=== PATIENT | female | born 1945 | race Caucasian/White ===

== ENCOUNTER 2022-05-15 19:15 | Inpatient (IN) ==
[2022-05-15] MEDS ORDERED: cefTRIAXone 2 gm/50 mL D5W 2 GM/50 ML BAG IV ONE (19:50)
[2022-05-15] MEDS ORDERED: NS 0.9% 1000 ml BAG 2,000 ML IV ONE (19:52)
[2022-05-15] MEDS ORDERED: Vancomycin 1,500 MG in NS 0.9% 250 ml 250 ML IVPB ONE (20:07)
[2022-05-15 20:39] LABS: Hematocrit 35 % (35-47); Hemoglobin 11.2 g/dL (12.0-16.0); Mean Corpuscular HGB Conc 32 g/dL (31-36); Mean Corpuscular Hemoglobin 28 pg (27-31); Mean Corpuscular Volume 86 fL (80-97); Mean Platelet Volume 8.2 fL (7.4-10.4); Platelet Count 199 10^3/uL (150-450); Red Blood Count 4.07 10^6 /uL (3.70-4.87); Red Cell Distribution Width 15 % (10-15); White Blood Count 13.6 10^3/uL (3.5-10.8)
[2022-05-15 20:50] LABS: INR 1.11 (0.88-1.18)
[2022-05-15 21:14] LABS: Albumin 3.2 g/dL (3.2-5.2); Albumin/Globulin Ratio 1.1 (1-3); C Reactive Protein 127.58 mg/L (<8.01); Calcium 8.6 mg/dL (8.6-10.3); Creatinine, Serum 1.08 mg/dL (0.51-0.95); Potassium 4.2 mmol/L (3.5-5.0); Total Bilirubin 0.4 mg/dL (0.2-1.0); Total Protein 6.2 g/dL (6.4-8.9); eGFR CKD-EPI 52.6 (>60)
[2022-05-15 21:42] LABS: ABS Eosinophils 0.1 10^3/ul (0-0.6); ABS Monocytes 1.2 10^3/ul (0-0.8); ABS Neutrophils 11.3 10^3/ul (1.5-7.7); Eosinophil % 0.5 %; Lymphocyte % 7.5 %; Nucleated Red Blood Cells % 0.2
[2022-05-15] MEDS ORDERED: Dextrose 50% Syringe 50 ml 25 GM/50 ML SYRINGE IV PUSH ONE (21:42)
[2022-05-15] MEDS ORDERED: Dextrose 50% Syringe 50 ml 25 GM/50 ML SYRINGE IV PUSH PRN ×2 (21:43→23:26)
[2022-05-15 22:55] LABS: High Sensitivity Troponin 1 Hr 11 pg/mL (<15)
[2022-05-15] MEDS: Enoxaparin 40 MG/0.4 ML SYR SUBCUT SCH (23:58)
[2022-05-16 06:05] LABS: ABS Eosinophils 0.1 10^3/ul (0-0.6); ABS Lymphocytes 0.7 10^3/ul (1.0-4.8); ABS Monocytes 1.1 10^3/ul (0-0.8); ABS Neutrophils 9.1 10^3/ul (1.5-7.7); Eosinophil % 0.8 %; Hematocrit 33 % (35-47); Hemoglobin 10.5 g/dL (12.0-16.0); Lymphocyte % 6.6 %; Mean Corpuscular HGB Conc 32 g/dL (31-36); Mean Corpuscular Hemoglobin 28 pg (27-31); Mean Corpuscular Volume 87 fL (80-97); Mean Platelet Volume 8.3 fL (7.4-10.4); Nucleated Red Blood Cells % 0.2; Platelet Count 184 10^3/uL (150-450); Red Blood Count 3.75 10^6 /uL (3.70-4.87); Red Cell Distribution Width 14 % (10-15); White Blood Count 11.1 10^3/uL (3.5-10.8)
[2022-05-16 06:23] LABS: Calcium 7.9 mg/dL (8.6-10.3); Creatinine, Serum 0.87 mg/dL (0.51-0.95); Potassium 4.3 mmol/L (3.5-5.0); eGFR CKD-EPI 68.2 (>60)
[2022-05-16] MEDS: ceFAZolin 2 GM in NS PREMIX 2 GM/100 ML BAG IVPB SCH ×2 (08:46→16:53)
[2022-05-16] MEDS: ceFAZolin 2 GM PREMIX 2 GM/50 ML BAG IV SCH (16:50)
[2022-05-16 17:07] LABS: Hematocrit 28 % (35-47)
[2022-05-16] MEDS ORDERED: cefTRIAXone 2 gm/50 mL D5W 2 GM/50 ML BAG IV SCH (18:00)
[2022-05-16] MEDS ORDERED: Pantoprazole VIAL 40 MG VIAL IV ONE (19:01)
[2022-05-16] MEDS: Pantoprazole 80 mg in NS BAG 80 MG/250 ML BAG IV SCH (20:38)
[2022-05-16] MEDS: Nystatin TOP POWDER 15 GM BTL TOPICAL SCH (20:42)
[2022-05-16] MEDS: Enoxaparin 40 MG/0.4 ML SYR SUBCUT SCH (23:01)
[2022-05-16] MEDS ORDERED: Lactated Ringers 1000 ml BAG 1,000 ML IV ONE (23:34)
[2022-05-17] MEDS: ceFAZolin 2 GM PREMIX 2 GM/50 ML BAG IV SCH ×3 (00:13→17:19)
[2022-05-17 01:18] LABS: Hematocrit 28 % (35-47); Hemoglobin 8.8 g/dL (12.0-16.0)
[2022-05-17] MEDS: Pantoprazole 80 mg in NS BAG 80 MG/250 ML BAG IV SCH ×2 (07:37→20:58)
[2022-05-17] MEDS: Nystatin TOP POWDER 15 GM BTL TOPICAL SCH ×2 (09:02→21:45)
[2022-05-17 09:32] LABS: Hemoglobin 4.7 g/dL (12.0-16.0)
[2022-05-17 09:36] LABS: Hematocrit 15 % (35-47); Mean Corpuscular HGB Conc 31 g/dL (31-36); Mean Corpuscular Hemoglobin 27 pg (27-31); Mean Corpuscular Volume 86 fL (80-97); Mean Platelet Volume 7.9 fL (7.4-10.4); Platelet Count 231 10^3/uL (150-450); Red Blood Count 1.73 10^6 /uL (3.70-4.87); Red Cell Distribution Width 15 % (10-15); White Blood Count 11.6 10^3/uL (3.5-10.8)
[2022-05-17] MEDS ORDERED: Lactated Ringers 1000 ml BAG 1,000 ML IV SCH (10:00)
[2022-05-17 10:10] LABS: Blood Urea Nitrogen 18 mg/dL (6-24); CO2 Carbon Dioxide 25 mmol/L (22-32); Calcium 7.3 mg/dL (8.6-10.3); Creatinine, Serum 0.77 mg/dL (0.51-0.95); Glucose 137 mg/dL (70-100); Sodium 140 mmol/L (135-145); eGFR CKD-EPI 78.9 (>60)
[2022-05-17 10:12] LABS: Anion Gap 3 mmol/L (2-11); Chloride 112 mmol/L (101-111)
[2022-05-17 10:13] LABS: ABS Basophils 0.1 10^3/ul (0-0.2); ABS Eosinophils 0.1 10^3/ul (0-0.6); ABS Lymphocytes 1.2 10^3/ul (1.0-4.8); ABS Monocytes 1.2 10^3/ul (0-0.8); ABS Nucleated RBC 0.3 10^3/ul; Eosinophil % 1.3 %; Lymphocyte % 10.2 %; Nucleated Red Blood Cells % 2.4
[2022-05-17 15:27] LABS: Hematocrit 30 % (35-47); Hemoglobin 9.8 g/dL (12.0-16.0)
[2022-05-17 20:10] LABS: Hematocrit 30 % (35-47); Hemoglobin 9.7 g/dL (12.0-16.0)
[2022-05-18] MEDS: ceFAZolin 2 GM PREMIX 2 GM/50 ML BAG IV SCH ×3 (01:07→21:35)
[2022-05-18 01:40] LABS: Hematocrit 29 % (35-47); Hemoglobin 9.6 g/dL (12.0-16.0)
[2022-05-18 06:18] LABS: ABS Eosinophils 0.1 10^3/ul (0-0.6); ABS Lymphocytes 1.3 10^3/ul (1.0-4.8); ABS Monocytes 0.9 10^3/ul (0-0.8); ABS Neutrophils 6.3 10^3/ul (1.5-7.7); Eosinophil % 1.7 %; Hematocrit 28 % (35-47); Hemoglobin 9.2 g/dL (12.0-16.0); Lymphocyte % 15.3 %; Mean Corpuscular HGB Conc 33 g/dL (31-36); Mean Corpuscular Hemoglobin 28 pg (27-31); Mean Corpuscular Volume 85 fL (80-97); Mean Platelet Volume 7.2 fL (7.4-10.4); Nucleated Red Blood Cells % 0.2; Platelet Count 206 10^3/uL (150-450); Red Blood Count 3.27 10^6 /uL (3.70-4.87); Red Cell Distribution Width 14 % (10-15); White Blood Count 8.7 10^3/uL (3.5-10.8)
[2022-05-18 06:38] LABS: Calcium 7.7 mg/dL (8.6-10.3); Creatinine, Serum 0.75 mg/dL (0.51-0.95); Magnesium 1.4 mg/dL (1.9-2.7); Potassium 3.6 mmol/L (3.5-5.0); eGFR CKD-EPI 81.4 (>60)
[2022-05-18] MEDS ORDERED: Magnesium Sulfate IV 3 GM in NS 0.9% 100 ml BAG 100 ML IVPB ONE (07:16)
[2022-05-18] MEDS: Pantoprazole 80 mg in NS BAG 80 MG/250 ML BAG IV SCH (08:14)
[2022-05-18] MEDS ORDERED: Potassium EFFERVES 25 meq TAB PO ONE (10:35)
[2022-05-18] MEDS: Nystatin TOP POWDER 15 GM BTL TOPICAL SCH ×2 (10:53→21:39)
[2022-05-18] MEDS: Pantoprazole VIAL 40 MG VIAL IV SCH ×2 (14:28→21:22)
[2022-05-19] MEDS: ceFAZolin 2 GM PREMIX 2 GM/50 ML BAG IV SCH ×2 (05:35→15:37)
[2022-05-19 06:50] LABS: Hematocrit 31 % (35-47); Hemoglobin 9.9 g/dL (12.0-16.0); Mean Corpuscular HGB Conc 32 g/dL (31-36); Mean Corpuscular Hemoglobin 28 pg (27-31); Mean Corpuscular Volume 87 fL (80-97); Mean Platelet Volume 7.2 fL (7.4-10.4); Platelet Count 252 10^3/uL (150-450); Red Blood Count 3.53 10^6 /uL (3.70-4.87); Red Cell Distribution Width 15 % (10-15); White Blood Count 9.9 10^3/uL (3.5-10.8)
[2022-05-19 07:09] LABS: C Reactive Protein 69.87 mg/L (<8.01); Calcium 7.9 mg/dL (8.6-10.3); Creatinine, Serum 0.83 mg/dL (0.51-0.95); Magnesium 1.7 mg/dL (1.9-2.7); Potassium 4.1 mmol/L (3.5-5.0); eGFR CKD-EPI 72.1 (>60)
[2022-05-19] MEDS ORDERED: Magnesium Sulfate IV 3 GM in NS 0.9% 100 ml BAG 100 ML IVPB ONE (08:30)
[2022-05-19 08:41] LABS: ABS Eosinophils 0.2 10^3/ul (0-0.6); ABS Lymphocytes 1.4 10^3/ul (1.0-4.8); ABS Monocytes 0.9 10^3/ul (0-0.8); ABS Neutrophils 7.4 10^3/ul (1.5-7.7); Eosinophil % 1.7 %; Lymphocyte % 14.5 %; Nucleated Red Blood Cells % 0.2
[2022-05-19] MEDS: Nystatin TOP POWDER 15 GM BTL TOPICAL SCH ×2 (09:52→20:22)
[2022-05-19] MEDS: Pantoprazole VIAL 40 MG VIAL IV SCH ×2 (09:52→20:15)
[2022-05-19 12:23] LABS: Rapid COVID-19 Molecular Undetected (Undetected)
[2022-05-19 13:50] LABS: Hematocrit 32 % (35-47); Hemoglobin 10.2 g/dL (12.0-16.0)
[2022-05-19 14:02] LABS: Erythrocyte Sed Rate 115 mm/Hr (0-29)
[2022-05-19] MEDS ORDERED: Vancomycin 1,500 MG in NS 0.9% 250 ml 250 ML IVPB ONE (15:25)
[2022-05-19] MEDS ORDERED: Vancomycin per Pharmacy 1 EA NOTE FOLLOW UP PRN (16:27)
[2022-05-20] MEDS ORDERED: Vancomycin 750 MG in NS 0.9% 250 ML IVPB SCH (06:30)
[2022-05-20 09:19] LABS: Hematocrit 30 % (35-47); Hemoglobin 9.7 g/dL (12.0-16.0); Mean Corpuscular HGB Conc 32 g/dL (31-36); Mean Corpuscular Hemoglobin 28 pg (27-31); Mean Corpuscular Volume 86 fL (80-97); Mean Platelet Volume 7.2 fL (7.4-10.4); Platelet Count 286 10^3/uL (150-450); Red Blood Count 3.48 10^6 /uL (3.70-4.87); Red Cell Distribution Width 15 % (10-15); White Blood Count 11.6 10^3/uL (3.5-10.8)
[2022-05-20] MEDS: Pantoprazole VIAL 40 MG VIAL IV SCH (09:32)
[2022-05-20] MEDS: Nystatin TOP POWDER 15 GM BTL TOPICAL SCH ×2 (09:41→21:58)
[2022-05-20 09:58] LABS: Calcium 7.9 mg/dL (8.6-10.3); Creatinine, Serum 0.76 mg/dL (0.51-0.95); Magnesium 1.8 mg/dL (1.9-2.7); Potassium 4.3 mmol/L (3.5-5.0); eGFR CKD-EPI 80.2 (>60)
[2022-05-20] MEDS ORDERED: Magnesium Sulfate 2 gm BAG 2 GM/50 ML BAG IVPB ONE (10:19)
[2022-05-20] MEDS ORDERED: Gadoteridol (CONTRAST) 279.3 MG/ML 10 ML IV ONE (11:32)
[2022-05-20] MEDS: Vancomycin 750 MG in NS 0.9% 250 ML IVPB SCH (11:43)
[2022-05-20] MEDS: cefTRIAXone 1 gm/50 mL D5W 1 GM/50 ML BAG IV SCH (14:56)
[2022-05-20] MEDS: metroNIDAZOLE IV 500 MG/100ML 500 MG/100 ML BAG IVPB SCH ×2 (15:53→21:55)
[2022-05-21] MEDS: Vancomycin 750 MG in NS 0.9% 250 ML IVPB SCH ×2 (00:18→11:47)
[2022-05-21] MEDS: Nystatin TOP POWDER 15 GM BTL TOPICAL SCH ×2 (09:00→21:39)
[2022-05-21 09:03] LABS: C Reactive Protein 69.19 mg/L (<8.01)
[2022-05-21 10:00] LABS: Hematocrit 30 % (35-47); Hemoglobin 10.1 g/dL (12.0-16.0); Mean Corpuscular HGB Conc 33 g/dL (31-36); Mean Corpuscular Hemoglobin 29 pg (27-31); Mean Corpuscular Volume 87 fL (80-97); Mean Platelet Volume 6.9 fL (7.4-10.4); Platelet Count 284 10^3/uL (150-450); Red Blood Count 3.47 10^6 /uL (3.70-4.87); Red Cell Distribution Width 15 % (10-15); White Blood Count 12.1 10^3/uL (3.5-10.8)
[2022-05-21] MEDS ORDERED: Vancomycin Trough Check NOTE FOLLOW UP ONE (10:00)
[2022-05-21 10:29] LABS: C Reactive Protein 59.7 mg/L (<8.01); Calcium 7.6 mg/dL (8.6-10.3); Creatinine, Serum 0.81 mg/dL (0.51-0.95); Magnesium 1.8 mg/dL (1.9-2.7); Potassium 4.2 mmol/L (3.5-5.0); eGFR CKD-EPI 74.3 (>60)
[2022-05-21] MEDS: metroNIDAZOLE IV 500 MG/100ML 500 MG/100 ML BAG IVPB SCH (11:00)
[2022-05-21] MEDS ORDERED: Cefepime 2 GM in Dextrose 2 GM/50 ML BAG IV SCH ×2 (12:00→22:00)
[2022-05-21] MEDS: cefTRIAXone 1 gm/50 mL D5W 1 GM/50 ML BAG IV SCH (12:06)
[2022-05-21] MEDS: HYDROmorphone 0.5 MG/0.5 ML SYRINGE IV SLOW PU PRN ×2 (13:10→17:59)
[2022-05-21] MEDS: Vancomycin 1000 MG in NS 0.9% 250 ML IVPB SCH (22:38)
[2022-05-22] MEDS: HYDROmorphone 0.5 MG/0.5 ML SYRINGE IV SLOW PU PRN ×3 (01:36→23:11)
[2022-05-22] MEDS: metroNIDAZOLE IV 500 MG/100ML 500 MG/100 ML BAG IVPB SCH ×3 (01:41→23:15)
[2022-05-22 07:05] LABS: Hematocrit 28 % (35-47); Hemoglobin 9.2 g/dL (12.0-16.0); Mean Corpuscular HGB Conc 33 g/dL (31-36); Mean Corpuscular Hemoglobin 28 pg (27-31); Mean Corpuscular Volume 86 fL (80-97); Platelet Count 288 10^3/uL (150-450); Red Blood Count 3.24 10^6 /uL (3.70-4.87); Red Cell Distribution Width 14 % (10-15); White Blood Count 11.4 10^3/uL (3.5-10.8)
[2022-05-22 07:09] LABS: C Reactive Protein 53.45 mg/L (<8.01); Calcium 7.7 mg/dL (8.6-10.3); Creatinine, Serum 0.91 mg/dL (0.51-0.95); eGFR CKD-EPI 64.6 (>60)
[2022-05-22 08:19] LABS: ABS Eosinophils 0.2 10^3/ul (0-0.6); ABS Lymphocytes 1.7 10^3/ul (1.0-4.8); ABS Monocytes 0.7 10^3/ul (0-0.8); ABS Neutrophils 8.8 10^3/ul (1.5-7.7); Eosinophil % 1.3 %; Lymphocyte % 14.7 %; Nucleated Red Blood Cells % 0.1
[2022-05-22] MEDS: Nystatin TOP POWDER 15 GM BTL TOPICAL SCH ×2 (08:50→23:20)
[2022-05-22 09:27] LABS: Erythrocyte Sed Rate 100 mm/Hr (0-29)
[2022-05-22] MEDS ORDERED: Lidocaine 1% MPF 5 ML VIAL INJ ONE (09:52)
[2022-05-22] MEDS: Vancomycin 1000 MG in NS 0.9% 250 ML IVPB SCH ×2 (15:34→20:16)
[2022-05-23] MEDS: HYDROmorphone 0.5 MG/0.5 ML SYRINGE IV SLOW PU PRN ×3 (05:42→18:18)
[2022-05-23] MEDS: Vancomycin 1000 MG in NS 0.9% 250 ML IVPB SCH ×2 (05:43→18:02)
[2022-05-23 06:02] LABS: Hematocrit 27 % (35-47); Hemoglobin 8.5 g/dL (12.0-16.0); Mean Corpuscular HGB Conc 31 g/dL (31-36); Mean Corpuscular Hemoglobin 27 pg (27-31); Mean Corpuscular Volume 87 fL (80-97); Platelet Count 303 10^3/uL (150-450); Red Blood Count 3.11 10^6 /uL (3.70-4.87); Red Cell Distribution Width 14 % (10-15); White Blood Count 11.7 10^3/uL (3.5-10.8)
[2022-05-23 06:15] LABS: Calcium 7.9 mg/dL (8.6-10.3); Potassium 3.9 mmol/L (3.5-5.0)
[2022-05-23 06:21] LABS: Creatinine, Serum 0.86 mg/dL (0.51-0.95); eGFR CKD-EPI 69.1 (>60)
[2022-05-23] MEDS: Nystatin TOP POWDER 15 GM BTL TOPICAL SCH ×2 (10:12→21:01)
[2022-05-23] MEDS: metroNIDAZOLE IV 500 MG/100ML 500 MG/100 ML BAG IVPB SCH (10:12)
[2022-05-24 05:38] LABS: Hematocrit 27 % (35-47); Hemoglobin 8.6 g/dL (12.0-16.0); Mean Corpuscular HGB Conc 32 g/dL (31-36); Mean Corpuscular Hemoglobin 28 pg (27-31); Mean Corpuscular Volume 88 fL (80-97); Mean Platelet Volume 7.1 fL (7.4-10.4); Platelet Count 306 10^3/uL (150-450); Red Blood Count 3.08 10^6 /uL (3.70-4.87); Red Cell Distribution Width 15 % (10-15); White Blood Count 11.2 10^3/uL (3.5-10.8)
[2022-05-24] MEDS ORDERED: Vancomycin Trough Check NOTE FOLLOW UP ONE (06:00)
[2022-05-24 06:16] LABS: C Reactive Protein 32.66 mg/L (<8.01); Calcium 7.7 mg/dL (8.6-10.3); Creatinine, Serum 1.03 mg/dL (0.51-0.95); Magnesium 1.5 mg/dL (1.9-2.7); Vancomycin Trough 19.1 mcg/mL; eGFR CKD-EPI 55.7 (>60)
[2022-05-24] MEDS: Vancomycin 1000 MG in NS 0.9% 250 ML IVPB SCH (06:22)
[2022-05-24] MEDS ORDERED: Magnesium Sulfate IV 3 GM in NS 0.9% 100 ml BAG 100 ML IVPB ONE (07:12)
[2022-05-24] MEDS: Nystatin TOP POWDER 15 GM BTL TOPICAL SCH ×2 (08:53→20:34)
[2022-05-24 13:14] LABS: Rapid COVID-19 Molecular Undetected (Undetected)
[2022-05-24] MEDS: Vancomycin 750 MG in NS 0.9% 250 ML IVPB SCH (20:20)
[2022-05-25 06:23] LABS: Hematocrit 29 % (35-47); Hemoglobin 9.2 g/dL (12.0-16.0); Mean Corpuscular HGB Conc 32 g/dL (31-36); Mean Corpuscular Hemoglobin 28 pg (27-31); Mean Corpuscular Volume 88 fL (80-97); Platelet Count 311 10^3/uL (150-450); Red Blood Count 3.25 10^6 /uL (3.70-4.87); Red Cell Distribution Width 15 % (10-15); White Blood Count 9.7 10^3/uL (3.5-10.8)
[2022-05-25 07:02] LABS: Creatinine, Serum 1.15 mg/dL (0.51-0.95); Potassium 4.2 mmol/L (3.5-5.0); eGFR CKD-EPI 48.8 (>60)
[2022-05-25] MEDS ORDERED: NS 0.9% 1000 ml BAG 1,000 ML IV ONE (09:15)
[2022-05-25] MEDS: Nystatin TOP POWDER 15 GM BTL TOPICAL SCH (09:35)
[2022-05-25 09:46] VITALS: BP 124/68
[2022-05-25] MEDS: Vancomycin 750 MG in NS 0.9% 250 ML IVPB SCH (09:51)
[2022-05-25 12:37] LABS: Calcium 7.7 mg/dL (8.6-10.3); Creatinine, Serum 1.08 mg/dL (0.51-0.95); Potassium 4.6 mmol/L (3.5-5.0); eGFR CKD-EPI 52.6 (>60)
[2022-05-27] MEDS ORDERED: Vancomycin Trough Check NOTE FOLLOW UP ONE (06:00)
== END 2022-05-25 16:05 | DRG 603 ==
LOC: ED 19:15 → SUATTDRO 21:50 → EDHOLD 21:51 → INTOOBSV 21:51 → MEDTELE 23:43 → SUATTDRO 05-17 12:02
PROVIDERS: ADMIT Student in an Organized Health Care Education/Training Program; ATTEND Internal Medicine Hematology & Oncology